=== PATIENT | male | born 1980 | race Two or more races ===

== ENCOUNTER 2022-05-14 08:41 | Emergency (ER) | payer MEDICAID ==
[2022-05-14] MEDS ORDERED: LORazepam 1 MG Tab PO ONE (09:59)
[2022-05-14] MEDS ORDERED: Buprenorphine/Naloxone 8-2 MG Tab.SL SL ONE (10:56)
== END 2022-05-14 11:13 | disposition home or self-care (01) ==
LOC: JP.ED 08:41
DX: F11.93 Opioid use, unspecified with withdrawal (principal); F17.210 Nicotine dependence, cigarettes, uncomplicated
CPT/HCPCS: 99281; A9270; J0574